=== PATIENT | female | born 1950 | race Two or more races ===

== ENCOUNTER 2018-05-29 08:46 | Inpatient (IN) | payer BC, MEDICARE ==
[~2018-05-29] VITALS: Ht 154.9 cm; Wt 122.0 kg
[2018-05-29] MEDS ORDERED: ONDANSETRON HCL 4MG/2ML INJ IV STA (08:55)
[2018-05-29] MEDS ORDERED: PANTOPRAZOLE SODIUM 40 MG/VIAL IV STA (08:55)
[2018-05-29] MEDS ORDERED: SODIUM CHLORIDE 0.9% 1,000 ML IV ONE (08:55)
[2018-05-29 09:12] LABS: BASOPHILS % 0.3 % (0.0-2.0); HEMATOCRIT. 42.5 % (36.0-48.0); HEMOGLOBIN. 13.5 g/dL (12.0-16.0); MEAN CORPUSCULAR HEMOGLOBIN 27.2 pg (28.0-32.0); MEAN CORPUSCULAR VOLUME 85.8 fL (81.0-99.0); MEAN PLATELET VOLUME 13.1 fl (7.4-10.4); MONOCYTES % 3.6 % (2.0-8.0); NEUTROPHILS % 88.1 % (40.0-76.0); PLATELET 127 x1000/uL (130-400); RED BLOOD CELL COUNT 4.95 mill/uL (4.2-5.4)
[2018-05-29 09:19] LABS: CHLORIDE 103 mEq/L (98-107)
[2018-05-29 09:20] LABS: PROTHROMBIN TIME 10.2 sec (9.1-11.1)
[2018-05-29 10:02] LABS: CLARITY URINE TURBID (CLEAR); COLOR URINE YELLOW (YELLOW); KETONES URINE 1+ (NEGATIVE); LEUKOCYTE ESTERASE URINE 1+ (NEGATIVE); NITRITE URINE NEGATIVE (NEGATIVE); OCCULT BLOOD URINE TRACE (NEGATIVE); PROTEIN URINE 4+ (NEGATIVE); SPECIFIC GRAVITY URINE 1.022 (1.005-1.030); UROBILINOGEN URINE 0.2 E.U./dL (0.2-1.0)
[2018-05-29] MEDS: MEROPENEM 1,000 MG in SODIUM CHLORIDE 0.9% 100 ML IV SCH ×2 (11:08→12:27)
[2018-05-29] MEDS ORDERED: LORAZEPAM 2MG/ML CPJ IV ONE (14:45)
[2018-05-30] MEDS ORDERED: LORAZEPAM 2MG/ML CPJ IV PRN (01:00)
[2018-05-30 04:00] VITALS: BP 130/57
[2018-05-30 04:33] VITALS: BP 130/57
[2018-05-30] MEDS ORDERED: ONDANSETRON HCL 4MG/2ML INJ IV PRN (05:15)
[2018-05-30] MEDS ORDERED: DEXTROSE 50% WATER 50ML SYRINGE IV PRN (05:30)
[2018-05-30] MEDS: BLOOD SUGAR DIAGNOSTIC STRIP TEST SCH ×4 (06:37→21:54)
[2018-05-30] MEDS: INSULIN LISPRO 100 UNITS/ML SUBCUT SCH ×4 (06:42→21:56)
[2018-05-30] MEDS: SODIUM CHLORIDE 0.45% 1,000 ML IV SCH (06:54)
[2018-05-30] MEDS: MEROPENEM 500 MG in SODIUM CHLORIDE 0.9% 50 ML IV SCH ×2 (06:55→18:13)
[2018-05-30 08:00] VITALS: BP 111/91
[2018-05-30] MEDS ORDERED: PANTOPRAZOLE SODIUM 40 MG/VIAL IV SCH (09:00)
[2018-05-30] MEDS: PANTOPRAZOLE SODIUM 40 MG/VIAL IV SCH ×2 (10:37→21:54)
[2018-05-30 10:52] LABS: BASOPHILS % 0.6 % (0.0-2.0); EOSINOPHILS % 0.4 % (0.0-5.0); HEMOGLOBIN. 12.2 g/dL (12.0-16.0); LYMPHOCYTES % 12.9 % (20.0-50.0); MEAN CORPUSCULAR HEMOGLOBIN 27.6 pg (28.0-32.0); MEAN CORPUSCULAR VOLUME 86.3 fL (81.0-99.0); MONOCYTES % 6.7 % (2.0-8.0); NEUTROPHILS % 79.4 % (40.0-76.0); PLATELET 106 x1000/uL (130-400)
[2018-05-30 12:00] VITALS: BP 161/94
[2018-05-30] MEDS ORDERED: INFLUENZA VIRUS VACCINE(AFLURIA) 0.5ML SYR IM ONE (12:00)
[2018-05-30 16:00] VITALS: BP 139/91
[2018-05-30 20:00] VITALS: BP 173/80
[2018-05-30] MEDS: ATORVASTATIN CALCIUM 40MG TABLET PO SCH (21:54)
[2018-05-31] VITALS: BP 145/80
[2018-05-31 04:00] VITALS: BP 150/78
[2018-05-31 05:52] LABS: BASOPHILS % 0.3 % (0.0-2.0); HEMATOCRIT. 37.3 % (36.0-48.0); HEMOGLOBIN. 11.9 g/dL (12.0-16.0); LYMPHOCYTES % 20.1 % (20.0-50.0); MEAN CORPUSCULAR HEMOGLOBIN 27.8 pg (28.0-32.0); MEAN CORPUSCULAR VOLUME 87.5 fL (81.0-99.0); MEAN PLATELET VOLUME 13.4 fl (7.4-10.4); MONOCYTES % 8.2 % (2.0-8.0); NEUTROPHILS % 70.4 % (40.0-76.0); PLATELET 99 x1000/uL (130-400); RED BLOOD CELL COUNT 4.27 mill/uL (4.2-5.4); RED CELL DISTRIBUTION WIDTH 12.9 % (11.6-14.6)
[2018-05-31] MEDS: MEROPENEM 500 MG in SODIUM CHLORIDE 0.9% 50 ML IV SCH ×2 (06:32→18:03)
[2018-05-31] MEDS: INSULIN LISPRO 100 UNITS/ML SUBCUT SCH ×4 (06:34→21:55)
[2018-05-31] MEDS: SODIUM CHLORIDE 0.45% 1,000 ML IV SCH (06:37)
[2018-05-31] MEDS: BLOOD SUGAR DIAGNOSTIC STRIP TEST SCH ×4 (06:37→21:30)
[2018-05-31 06:49] LABS: VITAMIN B12 SERUM 386 pg/mL (211-911)
[2018-05-31 08:00] VITALS: BP 173/96
[2018-05-31] MEDS: PANTOPRAZOLE SODIUM 40 MG/VIAL IV SCH ×2 (08:58→21:55)
[2018-05-31] MEDS ORDERED: DOCUSATE SODIUM SUGAR FREE 100MG/10ML UDC PO SCH (09:00)
[2018-05-31] MEDS ORDERED: ENOXAPARIN 40MG/0.4ML SYR SUBCUT SCH (09:00)
[2018-05-31 09:31] LABS: TOTAL IRON BINDING CAPACITY 234 ug/dL (250-450)
[2018-05-31] MEDS ORDERED: LORAZEPAM 2MG/ML CPJ IV NR ×2 (10:00→19:45)
[2018-05-31 12:00] VITALS: BP 164/84
[2018-05-31] MEDS: CLONIDINE 0.1MG TABLET PO PRN (12:35)
[2018-05-31] MEDS: MAGNESIUM HYDROXIDE 400MG/5ML 30ML UDC PO SCH (13:17)
[2018-05-31] MEDS ORDERED: DIPHENHYDRAMINE 50MG/ML VIAL IV PRN (15:00)
[2018-05-31 16:00] VITALS: BP 168/94
[2018-05-31] MEDS: AMLODIPINE 5MG TABLET PO SCH (16:07)
[2018-05-31] MEDS: LORAZEPAM 2MG/ML CPJ IV PRN (17:03)
[2018-05-31] MEDS: FERROUS SULFATE 325MG TABLET PO SCH (18:03)
[2018-05-31 20:00] VITALS: BP 134/69
[2018-05-31] MEDS: ATORVASTATIN CALCIUM 40MG TABLET PO SCH (21:55)
[2018-06-01] VITALS: BP 127/65
[2018-06-01 04:00] VITALS: BP 146/81
[2018-06-01] MEDS: BLOOD SUGAR DIAGNOSTIC STRIP TEST SCH ×4 (06:35→21:00)
[2018-06-01] MEDS: MEROPENEM 500 MG in SODIUM CHLORIDE 0.9% 50 ML IV SCH (06:52)
[2018-06-01] MEDS: INSULIN LISPRO 100 UNITS/ML SUBCUT SCH ×4 (06:58→23:09)
[2018-06-01 07:07] LABS: HEMATOCRIT 37.3 % (36.0-48.0); MEAN CORPUSCULAR HEMOGLOBIN 27.8 pg (28.0-32.0); MEAN CORPUSCULAR VOLUME 86.4 fL (81.0-99.0); PLATELET 97 x1000/uL (130-400); RED BLOOD CELL COUNT 4.32 mill/uL (4.2-5.4); RED CELL DISTRIBUTION WIDTH 12.7 % (11.6-14.6)
[2018-06-01 08:00] VITALS: BP 159/85
[2018-06-01] MEDS: MAGNESIUM HYDROXIDE 400MG/5ML 30ML UDC PO SCH (08:34)
[2018-06-01] MEDS: FERROUS SULFATE 325MG TABLET PO SCH ×3 (08:34→17:41)
[2018-06-01] MEDS: PANTOPRAZOLE SODIUM 40 MG/VIAL IV SCH ×2 (08:34→22:40)
[2018-06-01] MEDS: AMLODIPINE 5MG TABLET PO SCH (08:34)
[2018-06-01] MEDS ORDERED: ASPIRIN 81MG TABLET PO SCH (09:00)
[2018-06-01] MEDS ORDERED: LORAZEPAM 2MG/ML CPJ IV NR ×2 (09:00→11:20)
[2018-06-01] MEDS ORDERED: BISACODYL 10MG SUPP PR PRN (09:45)
[2018-06-01 12:00] VITALS: BP 148/89
[2018-06-01] MEDS ORDERED: AMLODIPINE 5MG TABLET PO NR (12:30)
[2018-06-01] MEDS ORDERED: LEVOFLOXACIN 250MG TABLET PO SCH (14:00)
[2018-06-01] MEDS: ASPIRIN 81MG EC TABLET PO SCH (14:48)
[2018-06-01 16:00] VITALS: BP 152/82
[2018-06-01] MEDS: LORAZEPAM 2MG/ML CPJ IV PRN (16:22)
[2018-06-01 20:00] VITALS: BP 131/60
[2018-06-01] MEDS: HYDROCODONE/ACETAMINOPHEN 5/325MG TABLET PO PRN (22:38)
[2018-06-01] MEDS: ATORVASTATIN CALCIUM 40MG TABLET PO SCH (23:03)
[2018-06-02] VITALS: BP 125/63
[2018-06-02 04:00] VITALS: BP 118/69
[2018-06-02] MEDS: BLOOD SUGAR DIAGNOSTIC STRIP TEST SCH ×4 (07:10→21:00)
[2018-06-02] MEDS: INSULIN LISPRO 100 UNITS/ML SUBCUT SCH ×4 (07:40→21:00)
[2018-06-02 08:00] VITALS: BP 134/56
[2018-06-02] MEDS: LORAZEPAM 2MG/ML CPJ IV PRN ×2 (09:01→14:06)
[2018-06-02] MEDS: FERROUS SULFATE 325MG TABLET PO SCH ×3 (09:01→17:40)
[2018-06-02] MEDS: MAGNESIUM HYDROXIDE 400MG/5ML 30ML UDC PO SCH (09:01)
[2018-06-02] MEDS: PANTOPRAZOLE SODIUM 40 MG/VIAL IV SCH ×2 (09:01→21:00)
[2018-06-02] MEDS: ASPIRIN 81MG EC TABLET PO SCH (09:04)
[2018-06-02] MEDS: AMLODIPINE 5MG TABLET PO SCH (09:05)
[2018-06-02 09:15] LABS: HEMATOCRIT 37.8 % (36.0-48.0); MEAN CORPUSCULAR HEMOGLOBIN 27.3 pg (28.0-32.0); MEAN CORPUSCULAR VOLUME 85.9 fL (81.0-99.0); PLATELET 102 x1000/uL (130-400); RED CELL DISTRIBUTION WIDTH 12.7 % (11.6-14.6)
[2018-06-02] MEDS: CLONIDINE 0.1MG TABLET PO PRN (12:46)
[2018-06-02] MEDS ORDERED: SODIUM CHLORIDE 0.45% 1,000 ML IV SCH (15:45)
[2018-06-02] MEDS ORDERED: LORAZEPAM 2MG/ML CPJ IV PRN (15:45)
[2018-06-02] MEDS: QUETIAPINE FUMARATE 25MG TABLET PO SCH ×2 (15:45→21:00)
[2018-06-02] MEDS: HYDROCODONE/ACETAMINOPHEN 5/325MG TABLET PO PRN (17:57)
[2018-06-02 20:00] VITALS: BP 168/89
[2018-06-02] MEDS: ATORVASTATIN CALCIUM 40MG TABLET PO SCH (21:00)
[2018-06-03] VITALS (7 sets, daily range): BP systolic 113–168; BP diastolic 67–110
[2018-06-03 06:49] LABS: HEMATOCRIT 40.2 % (36.0-48.0); HEMOGLOBIN 12.8 g/dL (12.0-16.0); MEAN CORPUSCULAR HEMOGLOBIN 27.7 pg (28.0-32.0); MEAN CORPUSCULAR VOLUME 87.1 fL (81.0-99.0); PLATELET 104 x1000/uL (130-400); RED BLOOD CELL COUNT 4.61 mill/uL (4.2-5.4); RED CELL DISTRIBUTION WIDTH 12.7 % (11.6-14.6)
[2018-06-03 07:07] LABS: INR 1.1; PROTHROMBIN TIME 10.6 sec (9.1-11.1)
[2018-06-03] MEDS: BLOOD SUGAR DIAGNOSTIC STRIP TEST SCH ×4 (07:10→21:00)
[2018-06-03] MEDS: FERROUS SULFATE 325MG TABLET PO SCH ×3 (07:40→17:40)
[2018-06-03] MEDS: INSULIN LISPRO 100 UNITS/ML SUBCUT SCH ×4 (07:40→21:00)
[2018-06-03] MEDS: QUETIAPINE FUMARATE 25MG TABLET PO SCH (08:33)
[2018-06-03] MEDS: MAGNESIUM HYDROXIDE 400MG/5ML 30ML UDC PO SCH (08:33)
[2018-06-03] MEDS: AMLODIPINE 5MG TABLET PO SCH ×2 (08:33→21:05)
[2018-06-03] MEDS: PANTOPRAZOLE SODIUM 40 MG/VIAL IV SCH ×2 (08:44→21:00)
[2018-06-03] MEDS: CLONIDINE 0.1MG TABLET PO PRN ×3 (08:45→21:06)
[2018-06-03] MEDS ORDERED: LEVOFLOXACIN 500MG PREMIX 100 ML IV SCH (10:30)
[2018-06-03] MEDS: LEVOFLOXACIN 250MG TABLET PO SCH (11:00)
[2018-06-03] MEDS ORDERED: MIDAZOLAM HCL 5 MG/5 ML VIAL IV PRN (11:05)
[2018-06-03] MEDS ORDERED: FENTANYL CITRATE/PF 50MCG/ML 2ML VIAL ONE (11:07)
[2018-06-03] MEDS ORDERED: MIDAZOLAM HCL 5 MG/5 ML VIAL ONE (11:07)
[2018-06-03] MEDS ORDERED: FENTANYL CITRATE/PF 50MCG/ML 2ML VIAL IV PRN (11:14)
[2018-06-03] MEDS ORDERED: SODIUM CHLORIDE 0.9% 10ML VIAL ONE (14:51)
[2018-06-03] MEDS: ATORVASTATIN CALCIUM 40MG TABLET PO SCH (21:00)
[2018-06-03] MEDS ORDERED: QUETIAPINE FUMARATE 25MG TABLET PO SCH (21:00)
[2018-06-03] MEDS: ASPIRIN 81MG EC TABLET PO SCH (21:04)
[2018-06-04] VITALS: BP 153/80
[2018-06-04 04:00] VITALS: BP 135/55
[2018-06-04 04:53] LABS: CHLORIDE 111 mEq/L (98-107)
[2018-06-04 05:01] LABS: CREATINE KINASE 42 IU/L (26-192)
[2018-06-04 05:03] LABS: CREATINE KINASE MB FRACTION 1.9 ng/mL (0.5-3.6)
[2018-06-04 05:32] LABS: HEMATOCRIT 38.2 % (36.0-48.0); HEMOGLOBIN 12.2 g/dL (12.0-16.0); MEAN CORPUSCULAR HEMOGLOBIN 27.6 pg (28.0-32.0); MEAN CORPUSCULAR VOLUME 86.3 fL (81.0-99.0); PLATELET 105 x1000/uL (130-400); RED BLOOD CELL COUNT 4.42 mill/uL (4.2-5.4); RED CELL DISTRIBUTION WIDTH 12.9 % (11.6-14.6)
[2018-06-04] MEDS: BLOOD SUGAR DIAGNOSTIC STRIP TEST SCH ×2 (07:27→13:01)
[2018-06-04] MEDS: FERROUS SULFATE 325MG TABLET PO SCH ×2 (07:40→12:40)
[2018-06-04] MEDS: INSULIN LISPRO 100 UNITS/ML SUBCUT SCH ×2 (07:40→13:04)
[2018-06-04 08:00] VITALS: BP 140/75
[2018-06-04] MEDS ORDERED: LEVOFLOXACIN 250MG PREMIX 50 ML IV SCH (09:00)
[2018-06-04] MEDS: PANTOPRAZOLE SODIUM 40 MG/VIAL IV SCH (09:26)
[2018-06-04] MEDS: MAGNESIUM HYDROXIDE 400MG/5ML 30ML UDC PO SCH (09:26)
[2018-06-04 12:00] VITALS: BP 116/67
[2018-06-04] MEDS: LEVOFLOXACIN 250MG TABLET PO SCH (13:01)
[2018-06-04 13:45] VITALS: BP 122/69
[2018-06-04 15:57] LABS: CREATINE KINASE 37 IU/L (26-192)
[2018-06-04 16:00] VITALS: BP 134/79
== END 2018-06-04 18:48 | DRG 64 ==
LOC: ER 08:46 → 8WST 10:36 → EDBEDREQ 10:48 → EDBEDREQTM 10:48 → ENRESERV 05-30 02:47
PROVIDERS: ADMIT Internal Medicine; ATTEND Internal Medicine
PROC: 4A00X4Z Measurement of Central Nervous Electrical Activity, External Approach (ICD-10-PCS; 2018-05-31)
PROC: 0DH63UZ Insertion of Feeding Device into Stomach, Percutaneous Approach (ICD-10-PCS; principal; 2018-06-03)
DX: I63.9 Cerebral infarction, unspecified (principal); K29.71 Gastritis, unspecified, with bleeding; N39.0 Urinary tract infection, site not specified; E44.0 Moderate protein-calorie malnutrition; Z68.42 Body mass index [BMI] 45.0-49.9, adult; D68.59 Other primary thrombophilia; G93.49 Other encephalopathy; J90 Pleural effusion, not elsewhere classified; N17.9 Acute kidney failure, unspecified; G81.94 Hemiplegia, unspecified affecting left nondominant side; R29.810 Facial weakness; F03.90 Unspecified dementia, unspecified severity, without behavioral disturbance, psychotic disturbance, mood disturbance, and anxiety; E66.01 Morbid (severe) obesity due to excess calories; E78.5 Hyperlipidemia, unspecified; E61.1 Iron deficiency; K44.9 Diaphragmatic hernia without obstruction or gangrene; N18.9 Chronic kidney disease, unspecified; E11.65 Type 2 diabetes mellitus with hyperglycemia; I12.9 Hypertensive chronic kidney disease with stage 1 through stage 4 chronic kidney disease, or unspecified chronic kidney disease; E11.22 Type 2 diabetes mellitus with diabetic chronic kidney disease; Z66 Do not resuscitate; R13.12 Dysphagia, oropharyngeal phase; R45.1 Restlessness and agitation; R47.02 Dysphasia; Z86.73 Personal history of transient ischemic attack (TIA), and cerebral infarction without residual deficits; Z88.0 Allergy status to penicillin
CPT/HCPCS: 36415; 70551; 71045; 74018; 76770; 80048; 80061; 82270; 82550; 82553; 82607; 82728; 82962; 83036; 83540; 83550; 83605; 83880; 84443; 84484; 85027; 86850; 86900; 90686; 92610; 93005; 93306; 93880; 96361; 96374; 96375; 97110; 97162; 97166; 97530; 97535; 99152; 99285; C9113; J1200; J1650; J1815; J1956; J2060; J2185; J2250; J2405; J3010; J7030; J7050; G0500